=== PATIENT | female | born 1930 | race Caucasian/White ===

== ENCOUNTER → 2017-04-11 | Outpatient (CLI) | payer OTHER ==
[~2017-04-11] MED LIST: ACET325 PO; ACYC800 PO; ALBU90OI INH; ALBU90OI61 INH; AMLO5 PO; ASPI81CH PO; ASPI81EC PO; ATEN25 PO; AZIT500 PO; Amlodipine Bes2.5 MG PO; BENMENLOZ UD; CARV25 PO; CEFU50SU PO; CEN; CEPH250A PO; CEPH500 PO; CLIN300 PO; CLINDAMYCIN HCL75 MG; CLOBET30L TOP; CLOP75 PO; Ceftriaxon2 GM/50 ML IV; Cephalexin500 M1 PO; DEEP SEA44 ML NS; DIGO.125 PO; DOCU100 PO; DULERA 200 MCG/13 GM INH; ESTR.625; ESTR2; ESTRTP VAG; FAMO20 PO; GAVILAX17 GM PO; GLUC500 PO; GUAI600T33 PO; HRT; HYDACE5 PO; HYDCHL25 PO; IBUP600 PO; KETO.5OPSO LEFTEYE; LEVFLO500; LIVALO; LIVALO4 MG PO; LORA.5 PO; LOSA50 PO; METO50ER PO; MUPI1NAS; MUPI2TC TOP; Macrobid 100 M100 MG PO; Mucinex600 MG; Norco 5-325 Ta1 EACH PO; OMEP20ER; ONDA4ODT MM; POLTRIOPSO OU; PRED10 PO; Prilosec Otc20 MG PO; Ra Tussin Coug118 ML PO; SACC250C; SACC250C PO; SPIR25 PO; SULTRIDS PO; TOBR.3OPSO OP; Tamiflu30 MG PO; XARELTO20 MG PO
== END ==
LOC: LAB EV 17:05 → LAB SHORT 17:05
DX: B37.0 Candidal stomatitis (principal)
CPT/HCPCS: 87070

== ENCOUNTER → 2017-04-15 | Outpatient (CLI) | payer OTHER ==
[2017-04-17 12:41] LABS: HPV Genotype 16 Not Detected (NOTDET); HPV Genotype 18 Not Detected (NOTDET)
[2017-04-22 08:55] LABS: HPV High Risk Other Not Detected (NOTDET)
== END | disposition home or self-care (01) ==
LOC: OLS 13:53 → LAB SHORT 13:53
PROVIDERS: Obstetrics & Gynecology Gynecology
DX: Z12.4 Encounter for screening for malignant neoplasm of cervix (principal)
CPT/HCPCS: 87624; G0123

== ENCOUNTER 2017-04-20 16:16 | Inpatient (IN) | payer OTHER ==
[~2017-04-20] VITALS: Ht 152.4 cm; Wt 56.4 kg
[~2017-04-20 16:16] MED LIST changes: -ALBU90OI61 INH; -BENMENLOZ UD; -CEPH250A PO; -CLOBET30L TOP; -Ceftriaxon2 GM/50 ML IV; -Cephalexin500 M1 PO; -DEEP SEA44 ML NS; -DOCU100 PO; -FAMO20 PO; -GAVILAX17 GM PO; -IBUP600 PO; -LEVFLO500; -METO50ER PO; -MUPI1NAS; -Norco 5-325 Ta1 EACH PO; -SACC250C
[2017-04-20 19:18] LABS: Source, Urine Catheter
[2017-04-20 19:23] LABS: Bilirubin, Urine Neg (Neg); Blood, Urine 1+ (Neg); Glucose Qualitative, Urine Neg (Neg); Ketones, Urine 2+ (Neg); Leukocyte Esterase, Urine 1+ (Neg); Nitrite, Urine Neg (Neg); Protein, Urine 2+ (Neg); Urobilinogen, Urine NORM (Normal)
[2017-04-20 19:30] LABS: Appearance, Urine Clear (Clear); Color, Urine Yellow (P-Yellow); White Blood Cells, Urine 25-50 /hpf (0-5)
[2017-04-20 19:31] LABS: Bacteria Many /hpf; Squamous Epithelial Cells Few /hpf (Few)
[2017-04-20 20:48] LABS: BASOPHILS ABSOLUTE AUTO 0.03 K/mm3 (0.00-0.23); BASOPHILS PERCENT AUTO 0 % (0-2); Hematocrit 30.2 % (33.0-51.0); Hemoglobin 9.9 g/dL (11.5-16.0); LYMPHOCYTES PERCENT AUTO 1 % (21-46); MONOCYTES ABSOLUTE AUTO 0.75 K/mm3 (0.16-1.47); MONOCYTES PERCENT AUTO 3 % (4-13); Mean Corpuscular HGB 32.5 pg (26.0-34.0); Mean Corpuscular HGB Conc 32.8 g/dL (31.5-36.5); Mean Corpuscular Volume 99 fL (80-100); Mean Platelet Volume 9.2 fL (9.1-12.4); Platelet Count 106 K/mm3 (150-400); RDW Coefficient Variation 16.4 % (11.7-14.2); RDW Standard Deviation 60.2 fL (35.1-46.3); Red Blood Cell Count 3.05 M/mm3 (3.80-5.20); White Blood Cell Count 22.15 K/mm3 (4.00-11.30)
[2017-04-20 20:57] LABS: EOSINOPHILS PERCENT AUTO 0 % (0-6); IMMATURE GRAN ABSOLUTE AUTO 0.13 K/mm3 (0.00-0.10); IMMATURE GRAN PERCENT AUTO 1 % (0-1); NEUTROPHILS ABSOLUTE AUTO 20.94 K/mm3 (1.96-9.15); NEUTROPHILS PERCENT AUTO 95 % (41-73)
[2017-04-20 21:12] LABS: Alanine Aminotransfer (ALT/SGP 35 U/L (12-78); Albumin, Blood 2.9 g/dL (3.4-5.0); Albumin/Globulin Ratio 0.9 (0.8-1.8); Alk Phos 46 U/L (50-136); Anion Gap 13 mmol/L (6-16); Aspartate Aminotrans (AST/SGOT 28 U/L (12-37); Bilirubin, Total 0.6 mg/dL (0.1-1.0); Blood Urea Nitrogen 21 mg/dL (8-24); Bun/Creatinine Ratio 34.4 (12.0-20.0); CO2, Blood 21 mmol/L (21-32); Calcium, Blood 7.8 mg/dL (8.5-10.1); Chloride, Blood 103 mmol/L (98-108); Creatinine, Blood 0.61 mg/dL (0.40-1.00); Globulin, Blood 3.2 g/dL (2.2-4.0); Glomerular Filtration Rate >60 (60-); Glucose, Blood 140 mg/dL (70-99); Potassium, Blood 3.4 mmol/L (3.5-5.5); Sodium, Blood 137 mmol/L (136-145); Total Protein, Blood 6.1 g/dL (6.4-8.2)
[2017-04-20 21:16] LABS: C-REACTIVE PROTEIN, EXT RANGE >19.000 mg/dL (0.000-0.300)
[2017-04-20 22:52] LABS: Magnesium, Blood 2.2 mg/dL (1.6-2.4)
[2017-04-21 05:47] LABS: Hematocrit 29.9 % (33.0-51.0); Hemoglobin 9.9 g/dL (11.5-16.0); Mean Corpuscular HGB 32.4 pg (26.0-34.0); Mean Corpuscular HGB Conc 33.1 g/dL (31.5-36.5); Mean Corpuscular Volume 98 fL (80-100); Platelet Count 92 K/mm3 (150-400); RDW Coefficient Variation 16.3 % (11.7-14.2); RDW Standard Deviation 58.5 fL (35.1-46.3); Red Blood Cell Count 3.06 M/mm3 (3.80-5.20); White Blood Cell Count 20.67 K/mm3 (4.00-11.30)
[2017-04-21 06:06] LABS: Albumin, Blood 2.6 g/dL (3.4-5.0); Anion Gap 12 mmol/L (6-16); Blood Urea Nitrogen 22 mg/dL (8-24); Bun/Creatinine Ratio 33.4 (12.0-20.0); CO2, Blood 19 mmol/L (21-32); Calcium, Blood 8.1 mg/dL (8.5-10.1); Chloride, Blood 103 mmol/L (98-108); Creatinine, Blood 0.66 mg/dL (0.40-1.00); Glomerular Filtration Rate >60 (60-); Glucose, Blood 115 mg/dL (70-99); Phosphorus, Blood 1.9 mg/dL (2.5-4.9); Potassium, Blood 3.8 mmol/L (3.5-5.5); Sodium, Blood 134 mmol/L (136-145)
[2017-04-21 06:26] LABS: BAND PERCENT MAN 31 % (0-8); BASOPHILS PERCENT MAN 0 % (0-2); EOSINOPHILS PERCENT MAN 0 % (0-6); MONOCYTES ABSOLUTE MAN 1.03 K/mm3 (0.16-1.47); MONOCYTES PERCENT MAN 5 % (4-13); NEUTROPHILS ABSOLUTE MAN 19.63 K/mm3 (1.96-9.15); SEG NEUTROPHILS PERCENT MAN 64 % (41-73); TOTAL CELLS COUNTED 100
[2017-04-21] MEDS ORDERED: IBUP600 PO (13:00)
[2017-04-21] MEDS ORDERED: CEPH250A PO (13:01)
[2017-04-21] MEDS ORDERED: LOSA50 PO (13:01)
[2017-04-21] MEDS ORDERED: MUPI1NAS (13:01)
[2017-04-21] MEDS ORDERED: ALBU90OI61 INH (13:02)
[2017-04-21] MEDS ORDERED: LIVALO4 MG PO (15:50)
[2017-04-21] MEDS ORDERED: SACC250C (16:20)
[2017-04-23 06:02] LABS: BASOPHILS ABSOLUTE AUTO 0.01 K/mm3 (0.00-0.23); BASOPHILS PERCENT AUTO 0 % (0-2); EOSINOPHILS PERCENT AUTO 0 % (0-6); Hematocrit 29.8 % (33.0-51.0); Hemoglobin 9.8 g/dL (11.5-16.0); IMMATURE GRAN ABSOLUTE AUTO 0.11 K/mm3 (0.00-0.10); IMMATURE GRAN PERCENT AUTO 1 % (0-1); LYMPHOCYTES ABSOLUTE AUTO 0.64 K/mm3 (0.84-5.20); LYMPHOCYTES PERCENT AUTO 6 % (21-46); MONOCYTES ABSOLUTE AUTO 0.71 K/mm3 (0.16-1.47); MONOCYTES PERCENT AUTO 7 % (4-13); Mean Corpuscular HGB 32.2 pg (26.0-34.0); Mean Corpuscular HGB Conc 32.9 g/dL (31.5-36.5); Mean Corpuscular Volume 98 fL (80-100); Mean Platelet Volume 10.7 fL (9.1-12.4); NEUTROPHILS ABSOLUTE AUTO 8.57 K/mm3 (1.96-9.15); NEUTROPHILS PERCENT AUTO 85 % (41-73); NRBC ABSOLUTE 0.04 K/mm3 (0.00-0.02); NRBC Auto 0.4 /100 WBC (0.0-0.2); Platelet Count 73 K/mm3 (150-400); RDW Coefficient Variation 15.9 % (11.7-14.2); RDW Standard Deviation 57.8 fL (35.1-46.3); Red Blood Cell Count 3.04 M/mm3 (3.80-5.20); White Blood Cell Count 10.04 K/mm3 (4.00-11.30)
[2017-04-23 06:29] LABS: Alanine Aminotransfer (ALT/SGP 49 U/L (12-78); Albumin, Blood 2.6 g/dL (3.4-5.0); Albumin/Globulin Ratio 0.8 (0.8-1.8); Alk Phos 45 U/L (50-136); Anion Gap 8 mmol/L (6-16); Aspartate Aminotrans (AST/SGOT 30 U/L (12-37); Bilirubin, Total 0.4 mg/dL (0.1-1.0); Blood Urea Nitrogen 29 mg/dL (8-24); Bun/Creatinine Ratio 53.4 (12.0-20.0); CO2, Blood 23 mmol/L (21-32); Calcium, Blood 8.2 mg/dL (8.5-10.1); Chloride, Blood 103 mmol/L (98-108); Creatinine, Blood 0.54 mg/dL (0.40-1.00); Globulin, Blood 3.4 g/dL (2.2-4.0); Glomerular Filtration Rate >60 (60-); Glucose, Blood 152 mg/dL (70-99); Potassium, Blood 4.8 mmol/L (3.5-5.5); Sodium, Blood 134 mmol/L (136-145)
[2017-04-23] MEDS ORDERED: LEVFLO500 (13:58)
[2017-11-19] MEDS ORDERED: CEPH500 PO (12:22)
[2017-11-19] MEDS ORDERED: Cephalexin500 M1 PO (12:25)
== END 2017-04-23 16:49 | disposition home health service (06) | DRG 872 ==
LOC: ER 16:16 → MEDS 21:53 → ENPENDDIS 04-23 13:22 → MEDS 04-23 16:49
PROVIDERS: Family Medicine; Internal Medicine; Physician Assistant
DX: A40.1 Sepsis due to streptococcus, group B (principal); D69.6 Thrombocytopenia, unspecified; I48.91 Unspecified atrial fibrillation; G62.9 Polyneuropathy, unspecified; I10 Essential (primary) hypertension; E78.5 Hyperlipidemia, unspecified; G89.29 Other chronic pain; I25.10 Atherosclerotic heart disease of native coronary artery without angina pectoris; N39.0 Urinary tract infection, site not specified; L03.031 Cellulitis of right toe; B95.2 Enterococcus as the cause of diseases classified elsewhere; M25.551 Pain in right hip; Z95.1 Presence of aortocoronary bypass graft; I25.2 Old myocardial infarction; Z88.0 Allergy status to penicillin; Z88.2 Allergy status to sulfonamides; Z88.1 Allergy status to other antibiotic agents; Z88.8 Allergy status to other drugs, medicaments and biological substances; Z79.01 Long term (current) use of anticoagulants; Z79.899 Other long term (current) drug therapy
CPT/HCPCS: 36415; 72100; 73502; 80053; 80069; 81001; 83605; 83735; 85025; 85651; 86140; 87040; 87077; 87086; 87147; 87186; 93005; 93010; 96374; 97110; 97116; 97162; 97166; 97530; 97535; 99285; G8978; G8979; G8987; G8988; J0696; J1885; J1956; J7030; P9612

== ENCOUNTER 2017-04-25 16:02 | Inpatient (IN) | payer OTHER ==
[~2017-04-25] VITALS: Ht 165.1 cm; Wt 62.2 kg
[~2017-04-25 16:02] MED LIST changes: -BENMENLOZ UD; -CLOBET30L TOP; -Ceftriaxon2 GM/50 ML IV; -DEEP SEA44 ML NS; -DOCU100 PO; -FAMO20 PO; -GAVILAX17 GM PO; -METO50ER PO; -Norco 5-325 Ta1 EACH PO
[2017-04-25 17:01] LABS: Source, Urine Catheter
[2017-04-25 17:06] LABS: Appearance, Urine Clear (Clear); Bilirubin, Urine Neg (Neg); Blood, Urine 1+ (Neg); Color, Urine Yellow (P-Yellow); Glucose Qualitative, Urine Neg (Neg); Ketones, Urine Neg (Neg); Leukocyte Esterase, Urine Neg (Neg); Nitrite, Urine Neg (Neg); Protein, Urine Neg (Neg); Urobilinogen, Urine NORM (Normal)
[2017-04-25 17:26] LABS: Influenza A Negative (NEGATIVE); Influenza B Negative (NEGATIVE)
[2017-04-25 17:27] LABS: Bacteria Not Seen /hpf; Red Blood Cells, Urine 0-2 /hpf (0-2); Squamous Epithelial Cells Rare /hpf (Few); White Blood Cells, Urine Not Seen /hpf (0-5)
[2017-04-26 05:54] LABS: BASOPHILS ABSOLUTE AUTO 0.01 K/mm3 (0.00-0.23); BASOPHILS PERCENT AUTO 0 % (0-2); EOSINOPHILS ABSOLUTE AUTO 0.04 K/mm3 (0.00-0.68); EOSINOPHILS PERCENT AUTO 0 % (0-6); Hematocrit 29.2 % (33.0-51.0); Hemoglobin 9.4 g/dL (11.5-16.0); IMMATURE GRAN ABSOLUTE AUTO 0.17 K/mm3 (0.00-0.10); IMMATURE GRAN PERCENT AUTO 1 % (0-1); LYMPHOCYTES ABSOLUTE AUTO 0.76 K/mm3 (0.84-5.20); LYMPHOCYTES PERCENT AUTO 5 % (21-46); MONOCYTES ABSOLUTE AUTO 0.72 K/mm3 (0.16-1.47); MONOCYTES PERCENT AUTO 5 % (4-13); Mean Corpuscular HGB 31.9 pg (26.0-34.0); Mean Corpuscular HGB Conc 32.2 g/dL (31.5-36.5); Mean Corpuscular Volume 99 fL (80-100); Mean Platelet Volume 10.6 fL (9.1-12.4); NEUTROPHILS ABSOLUTE AUTO 13.86 K/mm3 (1.96-9.15); NEUTROPHILS PERCENT AUTO 89 % (41-73); Platelet Count 111 K/mm3 (150-400); RDW Coefficient Variation 15.9 % (11.7-14.2); RDW Standard Deviation 58.1 fL (35.1-46.3); Red Blood Cell Count 2.95 M/mm3 (3.80-5.20); White Blood Cell Count 15.56 K/mm3 (4.00-11.30)
[2017-04-26 06:18] LABS: Alanine Aminotransfer (ALT/SGP 39 U/L (12-78); Albumin, Blood 2.3 g/dL (3.4-5.0); Albumin/Globulin Ratio 0.8 (0.8-1.8); Alk Phos 46 U/L (50-136); Anion Gap 10 mmol/L (6-16); Aspartate Aminotrans (AST/SGOT 21 U/L (12-37); Bilirubin, Total 0.2 mg/dL (0.1-1.0); Blood Urea Nitrogen 20 mg/dL (8-24); Bun/Creatinine Ratio 31.8 (12.0-20.0); CO2, Blood 21 mmol/L (21-32); Calcium, Blood 7.8 mg/dL (8.5-10.1); Chloride, Blood 109 mmol/L (98-108); Creatinine, Blood 0.63 mg/dL (0.40-1.00); Glomerular Filtration Rate >60 (60-); Glucose, Blood 147 mg/dL (70-99); Potassium, Blood 3.5 mmol/L (3.5-5.5); Sodium, Blood 140 mmol/L (136-145); Total Protein, Blood 5.3 g/dL (6.4-8.2)
[2017-04-27 05:23] LABS: BASOPHILS ABSOLUTE AUTO 0.02 K/mm3 (0.00-0.23); BASOPHILS PERCENT AUTO 0 % (0-2); EOSINOPHILS ABSOLUTE AUTO 0.06 K/mm3 (0.00-0.68); EOSINOPHILS PERCENT AUTO 0 % (0-6); Hematocrit 27.6 % (33.0-51.0); Hemoglobin 8.8 g/dL (11.5-16.0); IMMATURE GRAN ABSOLUTE AUTO 0.29 K/mm3 (0.00-0.10); IMMATURE GRAN PERCENT AUTO 2 % (0-1); LYMPHOCYTES ABSOLUTE AUTO 0.74 K/mm3 (0.84-5.20); LYMPHOCYTES PERCENT AUTO 5 % (21-46); MONOCYTES ABSOLUTE AUTO 0.68 K/mm3 (0.16-1.47); MONOCYTES PERCENT AUTO 5 % (4-13); Mean Corpuscular HGB 31.4 pg (26.0-34.0); Mean Corpuscular HGB Conc 31.9 g/dL (31.5-36.5); Mean Corpuscular Volume 99 fL (80-100); Mean Platelet Volume 10.4 fL (9.1-12.4); NEUTROPHILS ABSOLUTE AUTO 12.43 K/mm3 (1.96-9.15); NEUTROPHILS PERCENT AUTO 88 % (41-73); Platelet Count 108 K/mm3 (150-400); RDW Coefficient Variation 15.9 % (11.7-14.2); RDW Standard Deviation 58.1 fL (35.1-46.3); White Blood Cell Count 14.22 K/mm3 (4.00-11.30)
[2017-04-27 05:57] LABS: Alanine Aminotransfer (ALT/SGP 35 U/L (12-78); Albumin, Blood 2.2 g/dL (3.4-5.0); Albumin/Globulin Ratio 0.8 (0.8-1.8); Alk Phos 51 U/L (50-136); Anion Gap 9 mmol/L (6-16); Aspartate Aminotrans (AST/SGOT 21 U/L (12-37); Bilirubin, Total 0.4 mg/dL (0.1-1.0); Blood Urea Nitrogen 16 mg/dL (8-24); Bun/Creatinine Ratio 24.8 (12.0-20.0); CO2, Blood 22 mmol/L (21-32); Calcium, Blood 7.4 mg/dL (8.5-10.1); Chloride, Blood 109 mmol/L (98-108); Creatinine, Blood 0.65 mg/dL (0.40-1.00); Globulin, Blood 2.9 g/dL (2.2-4.0); Glomerular Filtration Rate >60 (60-); Glucose, Blood 145 mg/dL (70-99); Potassium, Blood 3.6 mmol/L (3.5-5.5); Sodium, Blood 140 mmol/L (136-145); Total Protein, Blood 5.1 g/dL (6.4-8.2)
[2017-04-29 08:32] LABS: BASOPHILS ABSOLUTE AUTO 0.02 K/mm3 (0.00-0.23); BASOPHILS PERCENT AUTO 0 % (0-2); EOSINOPHILS ABSOLUTE AUTO 0.06 K/mm3 (0.00-0.68); EOSINOPHILS PERCENT AUTO 0 % (0-6); Hematocrit 31.5 % (33.0-51.0); Hemoglobin 9.7 g/dL (11.5-16.0); IMMATURE GRAN ABSOLUTE AUTO 0.17 K/mm3 (0.00-0.10); IMMATURE GRAN PERCENT AUTO 1 % (0-1); LYMPHOCYTES ABSOLUTE AUTO 0.81 K/mm3 (0.84-5.20); LYMPHOCYTES PERCENT AUTO 5 % (21-46); MONOCYTES ABSOLUTE AUTO 0.91 K/mm3 (0.16-1.47); MONOCYTES PERCENT AUTO 6 % (4-13); Mean Corpuscular HGB 30.8 pg (26.0-34.0); Mean Corpuscular HGB Conc 30.8 g/dL (31.5-36.5); Mean Corpuscular Volume 100 fL (80-100); Mean Platelet Volume 10.2 fL (9.1-12.4); NEUTROPHILS ABSOLUTE AUTO 14.22 K/mm3 (1.96-9.15); NEUTROPHILS PERCENT AUTO 88 % (41-73); NRBC ABSOLUTE 0.03 K/mm3 (0.00-0.02); NRBC Auto 0.2 /100 WBC (0.0-0.2); Platelet Count 180 K/mm3 (150-400); RDW Standard Deviation 59.6 fL (35.1-46.3); Red Blood Cell Count 3.15 M/mm3 (3.80-5.20); White Blood Cell Count 16.19 K/mm3 (4.00-11.30)
[2017-04-29 08:54] LABS: Anion Gap 9 mmol/L (6-16); Blood Urea Nitrogen 13 mg/dL (8-24); Bun/Creatinine Ratio 20.5 (12.0-20.0); CO2, Blood 24 mmol/L (21-32); Calcium, Blood 7.6 mg/dL (8.5-10.1); Chloride, Blood 108 mmol/L (98-108); Creatinine, Blood 0.64 mg/dL (0.40-1.00); Glomerular Filtration Rate >60 (60-); Glucose, Blood 122 mg/dL (70-99); Potassium, Blood 3.9 mmol/L (3.5-5.5); Sodium, Blood 141 mmol/L (136-145)
[2017-04-30 08:12] LABS: BASOPHILS ABSOLUTE AUTO 0.02 K/mm3 (0.00-0.23); BASOPHILS PERCENT AUTO 0 % (0-2); EOSINOPHILS PERCENT AUTO 1 % (0-6); IMMATURE GRAN ABSOLUTE AUTO 0.24 K/mm3 (0.00-0.10); IMMATURE GRAN PERCENT AUTO 1 % (0-1); LYMPHOCYTES ABSOLUTE AUTO 0.98 K/mm3 (0.84-5.20); LYMPHOCYTES PERCENT AUTO 6 % (21-46); MONOCYTES PERCENT AUTO 8 % (4-13); Mean Corpuscular HGB 31.7 pg (26.0-34.0); Mean Corpuscular HGB Conc 32.3 g/dL (31.5-36.5); Mean Corpuscular Volume 98 fL (80-100); Mean Platelet Volume 10.4 fL (9.1-12.4); NEUTROPHILS ABSOLUTE AUTO 14.61 K/mm3 (1.96-9.15); NEUTROPHILS PERCENT AUTO 85 % (41-73); NRBC ABSOLUTE 0.03 K/mm3 (0.00-0.02); NRBC Auto 0.2 /100 WBC (0.0-0.2); Platelet Count 189 K/mm3 (150-400); RDW Coefficient Variation 16.2 % (11.7-14.2); RDW Standard Deviation 57.8 fL (35.1-46.3); Red Blood Cell Count 3.15 M/mm3 (3.80-5.20); White Blood Cell Count 17.25 K/mm3 (4.00-11.30)
[2017-04-30 08:25] LABS: Anion Gap 10 mmol/L (6-16); Blood Urea Nitrogen 12 mg/dL (8-24); CO2, Blood 22 mmol/L (21-32); Calcium, Blood 7.8 mg/dL (8.5-10.1); Chloride, Blood 107 mmol/L (98-108); Creatinine, Blood 0.63 mg/dL (0.40-1.00); Glomerular Filtration Rate >60 (60-); Glucose, Blood 137 mg/dL (70-99); Potassium, Blood 4.1 mmol/L (3.5-5.5); Sodium, Blood 139 mmol/L (136-145)
[2017-05-01 08:11] LABS: BASOPHILS ABSOLUTE AUTO 0.02 K/mm3 (0.00-0.23); BASOPHILS PERCENT AUTO 0 % (0-2); EOSINOPHILS ABSOLUTE AUTO 0.05 K/mm3 (0.00-0.68); EOSINOPHILS PERCENT AUTO 0 % (0-6); Hematocrit 30.6 % (33.0-51.0); Hemoglobin 9.8 g/dL (11.5-16.0); IMMATURE GRAN ABSOLUTE AUTO 0.19 K/mm3 (0.00-0.10); IMMATURE GRAN PERCENT AUTO 1 % (0-1); LYMPHOCYTES ABSOLUTE AUTO 1.21 K/mm3 (0.84-5.20); LYMPHOCYTES PERCENT AUTO 8 % (21-46); MONOCYTES ABSOLUTE AUTO 1.08 K/mm3 (0.16-1.47); MONOCYTES PERCENT AUTO 7 % (4-13); Mean Corpuscular HGB 31.3 pg (26.0-34.0); Mean Corpuscular Volume 98 fL (80-100); Mean Platelet Volume 10.4 fL (9.1-12.4); NEUTROPHILS PERCENT AUTO 83 % (41-73); NRBC ABSOLUTE 0.03 K/mm3 (0.00-0.02); NRBC Auto 0.2 /100 WBC (0.0-0.2); Platelet Count 210 K/mm3 (150-400); RDW Coefficient Variation 16.5 % (11.7-14.2); RDW Standard Deviation 58.8 fL (35.1-46.3); Red Blood Cell Count 3.13 M/mm3 (3.80-5.20); White Blood Cell Count 15.25 K/mm3 (4.00-11.30)
[2017-05-01] MEDS ORDERED: BENMENLOZ UD (13:56)
[2017-05-01] MEDS ORDERED: CLOBET30L TOP (14:00)
[2017-05-01] MEDS ORDERED: DOCU100 PO (14:02)
[2017-05-01] MEDS ORDERED: Norco 5-325 Ta1 EACH PO (14:03)
[2017-05-01] MEDS ORDERED: FAMO20 PO (14:04)
[2017-05-01] MEDS ORDERED: METO50ER PO (14:04)
[2017-05-01] MEDS ORDERED: GAVILAX17 GM PO (14:05)
[2017-05-01] MEDS ORDERED: Ceftriaxon2 GM/50 ML IV (14:06)
[2017-05-01] MEDS ORDERED: GUAI600T33 PO (14:07)
[2017-05-01] MEDS ORDERED: DEEP SEA44 ML NS (14:08)
[2017-11-19] MEDS ORDERED: CEPH500 PO (12:22)
[2017-11-19] MEDS ORDERED: Cephalexin500 M1 PO (12:25)
== END 2017-05-01 13:10 | DRG 872 ==
LOC: ER 16:02 → MEDS 18:01 → ENPENDDIS 05-01 11:19 → MEDS 05-01 13:10
PROVIDERS: Emergency Medicine; Family Medicine; Internal Medicine
PROC: 02HV33Z Insertion of Infusion Device into Superior Vena Cava, Percutaneous Approach (ICD-10-PCS; principal; 2017-04-30)
DX: A40.1 Sepsis due to streptococcus, group B (principal); E46 Unspecified protein-calorie malnutrition; D69.6 Thrombocytopenia, unspecified; G62.9 Polyneuropathy, unspecified; I48.2 Chronic atrial fibrillation; I05.2 Rheumatic mitral stenosis with insufficiency; L03.115 Cellulitis of right lower limb; B35.3 Tinea pedis; E86.0 Dehydration; R63.0 Anorexia; E86.9 Volume depletion, unspecified; E78.5 Hyperlipidemia, unspecified; I10 Essential (primary) hypertension; I25.10 Atherosclerotic heart disease of native coronary artery without angina pectoris; I73.9 Peripheral vascular disease, unspecified; Z95.2 Presence of prosthetic heart valve; M25.551 Pain in right hip; M60.9 Myositis, unspecified; Z88.0 Allergy status to penicillin; Z88.2 Allergy status to sulfonamides; Z79.02 Long term (current) use of antithrombotics/antiplatelets; Z96.652 Presence of left artificial knee joint; Z88.1 Allergy status to other antibiotic agents; Z95.1 Presence of aortocoronary bypass graft
CPT/HCPCS: 36415; 36569; 71045; 71046; 73502; 73721; 78305; 78315; 80048; 80053; 81001; 83605; 85025; 85651; 86140; 87040; 87147; 87804; 93306; 93922; 94640; 94667; 94760; 96361; 96365; 97116; 97162; 97166; 97530; 97535; 99285; A9561; C1751; G8978; G8979; G8987; G8988; J0295; J0696; J2405; J7030; P9612

== ENCOUNTER → 2017-04-25 | Outpatient (CLI) | payer OTHER ==
[~2017-04-25] MED LIST changes: +ALBU90OI61 INH; +BENMENLOZ UD; +CEPH250A PO; +CLOBET30L TOP; +Ceftriaxon2 GM/50 ML IV; +DEEP SEA44 ML NS; +DOCU100 PO; +FAMO20 PO; +GAVILAX17 GM PO; +IBUP600 PO; +LEVFLO500; +METO50ER PO; +MUPI1NAS; +Norco 5-325 Ta1 EACH PO; +SACC250C
[2017-04-25 14:01] LABS: BASOPHILS ABSOLUTE AUTO 0.06 K/mm3 (0.00-0.23); BASOPHILS PERCENT AUTO 0 % (0-2); EOSINOPHILS ABSOLUTE AUTO 0.01 K/mm3 (0.00-0.68); EOSINOPHILS PERCENT AUTO 0 % (0-6); Hematocrit 35.1 % (33.0-51.0); Hemoglobin 11.8 g/dL (11.5-16.0); IMMATURE GRAN ABSOLUTE AUTO 0.37 K/mm3 (0.00-0.10); IMMATURE GRAN PERCENT AUTO 2 % (0-1); LYMPHOCYTES ABSOLUTE AUTO 0.92 K/mm3 (0.84-5.20); LYMPHOCYTES PERCENT AUTO 4 % (21-46); MONOCYTES ABSOLUTE AUTO 1.21 K/mm3 (0.16-1.47); MONOCYTES PERCENT AUTO 6 % (4-13); Mean Corpuscular HGB 32.8 pg (26.0-34.0); Mean Corpuscular HGB Conc 33.6 g/dL (31.5-36.5); Mean Corpuscular Volume 98 fL (80-100); Mean Platelet Volume 10.4 fL (9.1-12.4); NEUTROPHILS ABSOLUTE AUTO 19.58 K/mm3 (1.96-9.15); NEUTROPHILS PERCENT AUTO 88 % (41-73); Platelet Count 130 K/mm3 (150-400); RDW Coefficient Variation 15.9 % (11.7-14.2); RDW Standard Deviation 57.4 fL (35.1-46.3); White Blood Cell Count 22.15 K/mm3 (4.00-11.30)
[2017-04-25 14:16] LABS: Alanine Aminotransfer (ALT/SGP 67 U/L (12-78); Albumin, Blood 3.4 g/dL (3.4-5.0); Albumin/Globulin Ratio 1.1 (0.8-1.8); Alk Phos 62 U/L (40-126); Anion Gap 13 mmol/L (6-16); Aspartate Aminotrans (AST/SGOT 35 U/L (12-37); Bilirubin, Total 0.7 mg/dL (0.1-1.0); Blood Urea Nitrogen 21 mg/dL (8-24); Bun/Creatinine Ratio 27.6 (12.0-20.0); CO2, Blood 22 mmol/L (21-32); Chloride, Blood 100 mmol/L (98-108); Creatinine, Blood 0.76 mg/dL (0.40-1.00); Globulin, Blood 3.1 g/dL (2.2-4.0); Glomerular Filtration Rate >60 (60-); Glucose, Blood 131 mg/dL (70-99); Sodium, Blood 135 mmol/L (136-145); Total Protein, Blood 6.5 g/dL (6.4-8.2)
== END | disposition home or self-care (01) ==
LOC: LAB SHORT 13:57 → LAB EV 13:57
PROVIDERS: Physician Assistant Surgical
DX: R42 Dizziness and giddiness (principal)
CPT/HCPCS: 80053; 85025

== ENCOUNTER → 2017-07-06 | Outpatient (CLI) | payer OTHER ==
[~2017-07-06] MED LIST changes: +BENMENLOZ UD; +CLOBET30L TOP; +Ceftriaxon2 GM/50 ML IV; +DEEP SEA44 ML NS; +DOCU100 PO; +FAMO20 PO; +GAVILAX17 GM PO; +METO50ER PO; +Norco 5-325 Ta1 EACH PO
== END ==
LOC: LAB EV 19:06 → LAB SHORT 19:06
DX: N39.0 Urinary tract infection, site not specified (principal)
CPT/HCPCS: 87086; 87147

== ENCOUNTER → 2017-07-11 | Outpatient (CLI) | payer OTHER | END | disposition home or self-care (01) | LOC: LAB SHORT 11:19 → LAB EV 11:19 | DX: N39.0 Urinary tract infection, site not specified (principal) | CPT/HCPCS: 87086 ==

== ENCOUNTER → 2017-07-15 | Outpatient (CLI) | payer OTHER ==
[2017-07-15 14:58] LABS: Source, Urine Catheter
[2017-07-15 16:07] LABS: Appearance, Urine Hazy (Clear); Bilirubin, Urine Neg (Neg); Blood, Urine Neg (Neg); Color, Urine Yellow (P-Yellow); Glucose Qualitative, Urine Neg (Neg); Ketones, Urine Neg (Neg); Leukocyte Esterase, Urine 2+ (Neg); Nitrite, Urine Neg (Neg); Protein, Urine Neg (Neg); Urobilinogen, Urine NORM (Normal); pH, Urine 6.5 (5.0-8.0)
[2017-07-15 16:26] LABS: Bacteria Few /hpf; Red Blood Cells, Urine 0-2 /hpf (0-2); Squamous Epithelial Cells Rare /hpf (Few); White Blood Cells, Urine 25-50 /hpf (0-5)
== END | disposition home or self-care (01) ==
LOC: LAB SHORT 14:56 → OLS 14:56
PROVIDERS: Nurse Practitioner Women's Health
DX: N89.8 Other specified noninflammatory disorders of vagina (principal); R30.0 Dysuria
CPT/HCPCS: 81001

== ENCOUNTER → 2017-09-02 | Outpatient (CLI) | payer OTHER | LOC: LAB SHORT 11:04 → PLD 11:04 | DX: D48.5 Neoplasm of uncertain behavior of skin (principal) | CPT/HCPCS: 88305 ==

== ENCOUNTER 2017-09-07 07:39 | Day surgery (SDC) | payer OTHER | END 2017-09-07 09:33 | disposition home or self-care (01) | LOC: WOUND 07:39 | DX: Z48.00 Encounter for change or removal of nonsurgical wound dressing (principal); M20.41 Other hammer toe(s) (acquired), right foot; M79.674 Pain in right toe(s) | CPT/HCPCS: G0463 ==

== ENCOUNTER 2017-09-21 07:10 | Day surgery (SDC) | payer OTHER | END 2017-09-21 09:20 | disposition home or self-care (01) | LOC: WOUND 07:10 | DX: Z48.00 Encounter for change or removal of nonsurgical wound dressing (principal); I70.209 Unspecified atherosclerosis of native arteries of extremities, unspecified extremity; M20.41 Other hammer toe(s) (acquired), right foot; M79.674 Pain in right toe(s); I87.2 Venous insufficiency (chronic) (peripheral) | CPT/HCPCS: G0463 ==

== ENCOUNTER 2018-03-02 00:14 | Day surgery (SDC) | payer OTHER ==
[~2018-03-02 00:14] MED LIST changes: +Cephalexin500 M1 PO
== END 2018-03-02 22:43 | disposition home or self-care (01) ==
LOC: WOUND 00:14
DX: S81.801D Unspecified open wound, right lower leg, subsequent encounter (principal); S61.213A Laceration without foreign body of left middle finger without damage to nail, initial encounter; S61.211A Laceration without foreign body of left index finger without damage to nail, initial encounter; M79.604 Pain in right leg; I10 Essential (primary) hypertension; I73.9 Peripheral vascular disease, unspecified
CPT/HCPCS: G0463

== ENCOUNTER 2018-03-05 00:14 | Day surgery (SDC) | payer OTHER | END 2018-03-05 23:15 | disposition home or self-care (01) | LOC: WOUND 00:14 | DX: M79.604 Pain in right leg (principal); S81.801D Unspecified open wound, right lower leg, subsequent encounter; S00-T88 Injury, poisoning and certain other consequences of external causes | CPT/HCPCS: G0463 ==

== ENCOUNTER 2018-03-12 14:24 | Day surgery (SDC) | payer OTHER | END 2018-03-12 22:43 | disposition home or self-care (01) | LOC: WOUND 14:24 | DX: M79.604 Pain in right leg (principal); S80.11XD Contusion of right lower leg, subsequent encounter | CPT/HCPCS: G0463 ==

== ENCOUNTER 2018-03-17 13:52 | Day surgery (SDC) | payer OTHER | END 2018-03-17 22:45 | disposition home or self-care (01) | LOC: WOUND 13:52 | DX: S80.811D Abrasion, right lower leg, subsequent encounter (principal); S80.11XD Contusion of right lower leg, subsequent encounter; M79.604 Pain in right leg ==

== ENCOUNTER 2018-03-19 08:33 | Day surgery (SDC) | payer OTHER | END 2018-03-19 22:38 | disposition home or self-care (01) | LOC: WOUND 08:33 | DX: M79.604 Pain in right leg (principal); S80.811D Abrasion, right lower leg, subsequent encounter; S80.11XD Contusion of right lower leg, subsequent encounter; Z79.899 Other long term (current) drug therapy | CPT/HCPCS: G0463 ==

== ENCOUNTER 2018-03-23 09:00 | Day surgery (SDC) | payer OTHER | END 2018-03-23 22:37 | disposition home or self-care (01) | LOC: WOUND 09:00 | PROC: 0HBKXZZ Excision of Right Lower Leg Skin, External Approach (ICD-10-PCS; principal; 2018-03-23) | DX: S81.811A Laceration without foreign body, right lower leg, initial encounter (principal) ==

== ENCOUNTER 2018-03-26 00:09 | Day surgery (SDC) | payer OTHER | END 2018-03-26 22:44 | disposition home or self-care (01) | LOC: WOUND 00:09 | DX: M79.604 Pain in right leg (principal); S80.811D Abrasion, right lower leg, subsequent encounter; S80.11XD Contusion of right lower leg, subsequent encounter; I10 Essential (primary) hypertension; I73.9 Peripheral vascular disease, unspecified; Z79.01 Long term (current) use of anticoagulants | CPT/HCPCS: G0463 ==

== ENCOUNTER 2018-03-29 15:08 | Day surgery (SDC) | payer OTHER | END 2018-03-29 23:42 | disposition home or self-care (01) | LOC: WOUND 15:08 | DX: S80.811D Abrasion, right lower leg, subsequent encounter (principal); Z79.01 Long term (current) use of anticoagulants; I10 Essential (primary) hypertension; I73.9 Peripheral vascular disease, unspecified | CPT/HCPCS: G0463 ==

== ENCOUNTER 2018-04-02 08:46 | Day surgery (SDC) | payer OTHER | END 2018-04-02 23:58 | disposition home or self-care (01) | LOC: WOUND 08:46 | PROC: 0HBKXZZ Excision of Right Lower Leg Skin, External Approach (ICD-10-PCS; principal; 2018-04-02) | DX: S81.811A Laceration without foreign body, right lower leg, initial encounter (principal) ==

== ENCOUNTER 2018-04-09 08:45 | Day surgery (SDC) | payer OTHER | END 2018-04-09 23:11 | disposition home or self-care (01) | LOC: WOUND 08:45 | DX: M79.604 Pain in right leg (principal); S80.11XD Contusion of right lower leg, subsequent encounter; S80.811D Abrasion, right lower leg, subsequent encounter; Z79.01 Long term (current) use of anticoagulants; I10 Essential (primary) hypertension ==

== ENCOUNTER 2018-04-16 08:45 | Day surgery (SDC) | payer OTHER | END 2018-04-16 22:54 | disposition home or self-care (01) | LOC: WOUND 08:45 | DX: S80.811A Abrasion, right lower leg, initial encounter (principal); S80.11XA Contusion of right lower leg, initial encounter; L97.819 Non-pressure chronic ulcer of other part of right lower leg with unspecified severity; M79.604 Pain in right leg; I87.2 Venous insufficiency (chronic) (peripheral); I11.0 Hypertensive heart disease with heart failure; I50.22 Chronic systolic (congestive) heart failure; I73.9 Peripheral vascular disease, unspecified; I25.10 Atherosclerotic heart disease of native coronary artery without angina pectoris | CPT/HCPCS: G0463 ==

== ENCOUNTER 2018-04-23 08:30 | Day surgery (SDC) | payer OTHER | END 2018-04-23 23:02 | disposition home or self-care (01) | LOC: WOUND 08:30 | DX: L97.812 Non-pressure chronic ulcer of other part of right lower leg with fat layer exposed (principal); S80.11XA Contusion of right lower leg, initial encounter; I87.2 Venous insufficiency (chronic) (peripheral); M79.604 Pain in right leg; I73.9 Peripheral vascular disease, unspecified; I25.10 Atherosclerotic heart disease of native coronary artery without angina pectoris; I11.0 Hypertensive heart disease with heart failure; I50.22 Chronic systolic (congestive) heart failure; L08.9 Local infection of the skin and subcutaneous tissue, unspecified; B95.61 Methicillin susceptible Staphylococcus aureus infection as the cause of diseases classified elsewhere ==

== ENCOUNTER 2018-04-30 08:32 | Day surgery (SDC) | payer OTHER | END 2018-04-30 23:14 | disposition home or self-care (01) | LOC: WOUND 08:32 | DX: L97.912 Non-pressure chronic ulcer of unspecified part of right lower leg with fat layer exposed (principal); S80.11XD Contusion of right lower leg, subsequent encounter; I87.2 Venous insufficiency (chronic) (peripheral); M79.604 Pain in right leg | CPT/HCPCS: G0463 ==

== ENCOUNTER 2018-05-07 00:52 | Day surgery (SDC) | payer OTHER | END 2018-05-08 23:17 | disposition home or self-care (01) | LOC: WOUND 00:52 | DX: L97.912 Non-pressure chronic ulcer of unspecified part of right lower leg with fat layer exposed (principal); S80.11XD Contusion of right lower leg, subsequent encounter; I87.2 Venous insufficiency (chronic) (peripheral); M79.604 Pain in right leg ==

== ENCOUNTER 2018-05-14 08:45 | Day surgery (SDC) | payer OTHER | END 2018-05-14 12:00 | disposition home or self-care (01) | LOC: WOUND 08:45 | DX: L97.912 Non-pressure chronic ulcer of unspecified part of right lower leg with fat layer exposed (principal); S80.11XD Contusion of right lower leg, subsequent encounter; M79.604 Pain in right leg; I10 Essential (primary) hypertension; I73.9 Peripheral vascular disease, unspecified; I25.10 Atherosclerotic heart disease of native coronary artery without angina pectoris; I87.2 Venous insufficiency (chronic) (peripheral); Z79.01 Long term (current) use of anticoagulants | CPT/HCPCS: G0463 ==

== ENCOUNTER 2018-06-04 00:13 | Day surgery (SDC) | payer OTHER | END 2018-06-04 12:00 | disposition home or self-care (01) | LOC: WOUND 00:13 | DX: L97.812 Non-pressure chronic ulcer of other part of right lower leg with fat layer exposed (principal); S80.11XD Contusion of right lower leg, subsequent encounter; I87.2 Venous insufficiency (chronic) (peripheral); I11.0 Hypertensive heart disease with heart failure; I50.22 Chronic systolic (congestive) heart failure; I25.10 Atherosclerotic heart disease of native coronary artery without angina pectoris; J45.909 Unspecified asthma, uncomplicated; I25.2 Old myocardial infarction; M19.90 Unspecified osteoarthritis, unspecified site ==

== ENCOUNTER 2018-06-11 00:27 | Day surgery (SDC) | payer OTHER | END 2018-06-11 23:22 | disposition home or self-care (01) | LOC: WOUND 00:27 | DX: L97.912 Non-pressure chronic ulcer of unspecified part of right lower leg with fat layer exposed (principal); L97.919 Non-pressure chronic ulcer of unspecified part of right lower leg with unspecified severity; I11.0 Hypertensive heart disease with heart failure; I50.22 Chronic systolic (congestive) heart failure; I25.10 Atherosclerotic heart disease of native coronary artery without angina pectoris; I87.2 Venous insufficiency (chronic) (peripheral); I25.2 Old myocardial infarction; R60.0 Localized edema | CPT/HCPCS: G0463 ==

== ENCOUNTER 2018-06-18 00:44 | Day surgery (SDC) | payer OTHER | END 2018-06-18 23:09 | disposition home or self-care (01) | LOC: WOUND 00:44 | DX: L97.812 Non-pressure chronic ulcer of other part of right lower leg with fat layer exposed (principal); I11.0 Hypertensive heart disease with heart failure; I50.22 Chronic systolic (congestive) heart failure; I25.10 Atherosclerotic heart disease of native coronary artery without angina pectoris; I87.2 Venous insufficiency (chronic) (peripheral); J45.909 Unspecified asthma, uncomplicated; R60.0 Localized edema ==

== ENCOUNTER 2018-06-25 09:05 | Day surgery (SDC) | payer OTHER | END 2018-06-25 23:52 | disposition home or self-care (01) | LOC: WOUND 09:05 | DX: I87.2 Venous insufficiency (chronic) (peripheral) (principal); L97.912 Non-pressure chronic ulcer of unspecified part of right lower leg with fat layer exposed; I11.0 Hypertensive heart disease with heart failure; I50.22 Chronic systolic (congestive) heart failure; I25.10 Atherosclerotic heart disease of native coronary artery without angina pectoris; I73.9 Peripheral vascular disease, unspecified; J45.909 Unspecified asthma, uncomplicated; I25.2 Old myocardial infarction; Z79.899 Other long term (current) drug therapy | CPT/HCPCS: G0463 ==

== ENCOUNTER 2018-07-02 09:00 | Day surgery (SDC) | payer OTHER ==
[2018-07-05] MEDS ORDERED: TORSE20 PO (15:27)
[2018-07-05] MEDS ORDERED: Estrace Vagin42.5 GM TD (15:27)
[2018-07-05] MEDS ORDERED: XARELTO15 MG PO (15:27)
[2018-07-05] MEDS ORDERED: SPIR25 PO (15:28)
== END 2018-07-02 23:33 | disposition home or self-care (01) ==
LOC: WOUND 09:00
DX: I87.2 Venous insufficiency (chronic) (peripheral) (principal); L97.812 Non-pressure chronic ulcer of other part of right lower leg with fat layer exposed; J45.909 Unspecified asthma, uncomplicated; I25.10 Atherosclerotic heart disease of native coronary artery without angina pectoris; I11.0 Hypertensive heart disease with heart failure; I50.22 Chronic systolic (congestive) heart failure; I25.2 Old myocardial infarction; I73.9 Peripheral vascular disease, unspecified; M06.9 Rheumatoid arthritis, unspecified; M19.90 Unspecified osteoarthritis, unspecified site
CPT/HCPCS: G0463

== ENCOUNTER 2018-07-06 08:27 | Day surgery (SDC) | payer OTHER ==
[2018-07-05 16:55] LABS: International Normalized Ratio 1.08; Prothrombin Time Results 11.4 Sec (9.7-11.5)
[~2018-07-06] VITALS: Ht 152.4 cm; Wt 53.6 kg
[~2018-07-06 08:27] MED LIST changes: +Estrace Vagin42.5 GM TD; +TORSE20 PO; +XARELTO15 MG PO
--- NOTE | 2018-07-06 12:18 | NUR ---
RIGHT LEG TELFA PADS ON ULCERS-WHOLE LEG WRAPPED WITH CURLEX, COBAN AND WENDY BANDAGE.
--- NOTE | 2018-07-06 14:22 | NUR ---
PT AND FRIEND ARELI VERBALIZES UNDERSTANDING WRITTEN AND VERBAL INSTRUCTIONS. PT IV DC'D. CATH INTACT. PRESSURE DSG IN PLACE. PT ASSISTED WITH GETTING DRESSED. VSS. LUCIA. PT DC TO HOME VIA FRIEND BY CATIA.
== END 2018-07-06 22:42 | disposition home or self-care (01) ==
LOC: MHTC 08:27
PROVIDERS: Radiology Diagnostic Radiology
DX: I87.2 Venous insufficiency (chronic) (peripheral) (principal); L97.819 Non-pressure chronic ulcer of other part of right lower leg with unspecified severity; I25.10 Atherosclerotic heart disease of native coronary artery without angina pectoris; I11.0 Hypertensive heart disease with heart failure; I50.9 Heart failure, unspecified; E78.5 Hyperlipidemia, unspecified; Z95.1 Presence of aortocoronary bypass graft; Z95.2 Presence of prosthetic heart valve; Z95.828 Presence of other vascular implants and grafts; Z88.8 Allergy status to other drugs, medicaments and biological substances; Z88.1 Allergy status to other antibiotic agents; Z88.5 Allergy status to narcotic agent; Z79.899 Other long term (current) drug therapy
CPT/HCPCS: 36415; 36466; 36475; 85610; 99152; 99153; C1888; C1894; J1644; J2250; J3010; J7040

== ENCOUNTER 2018-07-09 08:58 | Day surgery (SDC) | payer OTHER | END 2018-07-09 23:12 | disposition home or self-care (01) | LOC: WOUND 08:58 | DX: I87.2 Venous insufficiency (chronic) (peripheral) (principal); S80.11XA Contusion of right lower leg, initial encounter; L97.912 Non-pressure chronic ulcer of unspecified part of right lower leg with fat layer exposed; I11.0 Hypertensive heart disease with heart failure; I50.22 Chronic systolic (congestive) heart failure; I25.10 Atherosclerotic heart disease of native coronary artery without angina pectoris; I25.2 Old myocardial infarction; J45.909 Unspecified asthma, uncomplicated | CPT/HCPCS: G0463 ==

== ENCOUNTER 2018-07-12 16:09 | Day surgery (SDC) | payer OTHER | END 2018-07-12 23:10 | disposition home or self-care (01) | LOC: WOUND 16:09 | DX: I87.2 Venous insufficiency (chronic) (peripheral) (principal); S80.11XA Contusion of right lower leg, initial encounter; L97.912 Non-pressure chronic ulcer of unspecified part of right lower leg with fat layer exposed; I11.0 Hypertensive heart disease with heart failure; I50.22 Chronic systolic (congestive) heart failure; I25.10 Atherosclerotic heart disease of native coronary artery without angina pectoris | CPT/HCPCS: G0463 ==

== ENCOUNTER 2018-07-17 19:12 | Emergency (ER) | payer OTHER ==
[~2018-07-17] VITALS: Ht 152.4 cm; Wt 54.4 kg
[2018-07-17] MEDS ORDERED: Norco 5-325 Ta1 EACH PO (19:39)
[2018-07-17 20:10] LABS: BASOPHILS ABSOLUTE AUTO 0.03 K/mm3 (0.00-0.23); BASOPHILS PERCENT AUTO 0 % (0-2); EOSINOPHILS ABSOLUTE AUTO 0.05 K/mm3 (0.00-0.68); EOSINOPHILS PERCENT AUTO 1 % (0-6); Hematocrit 35.7 % (33.0-51.0); Hemoglobin 11.4 g/dL (11.5-16.0); IMMATURE GRAN ABSOLUTE AUTO 0.03 K/mm3 (0.00-0.10); IMMATURE GRAN PERCENT AUTO 0 % (0-1); LYMPHOCYTES ABSOLUTE AUTO 1.36 K/mm3 (0.84-5.20); LYMPHOCYTES PERCENT AUTO 16 % (21-46); MONOCYTES ABSOLUTE AUTO 1.37 K/mm3 (0.16-1.47); MONOCYTES PERCENT AUTO 16 % (4-13); Mean Corpuscular HGB 32.4 pg (26.0-34.0); Mean Corpuscular HGB Conc 31.9 g/dL (31.5-36.5); Mean Corpuscular Volume 101 fL (80-100); NEUTROPHILS ABSOLUTE AUTO 5.94 K/mm3 (1.96-9.15); NEUTROPHILS PERCENT AUTO 68 % (41-73); Platelet Count 267 K/mm3 (150-400); RDW Coefficient Variation 13.7 % (11.7-14.2); RDW Standard Deviation 50.7 fL (35.1-46.3); Red Blood Cell Count 3.52 M/mm3 (3.80-5.20); White Blood Cell Count 8.78 K/mm3 (4.00-11.30)
[2018-07-17 20:36] LABS: Alanine Aminotransfer (ALT/SGP 20 U/L (12-78); Albumin, Blood 3.6 g/dL (3.4-5.0); Albumin/Globulin Ratio 1.1 (0.8-1.8); Alk Phos 52 U/L (50-136); Anion Gap 8 mmol/L (6-16); Aspartate Aminotrans (AST/SGOT 22 U/L (12-37); Bilirubin, Total 0.6 mg/dL (0.1-1.0); Blood Urea Nitrogen 18 mg/dL (8-24); Bun/Creatinine Ratio 27.5 (12.0-20.0); CO2, Blood 23 mmol/L (21-32); Calcium, Blood 8.6 mg/dL (8.5-10.1); Chloride, Blood 109 mmol/L (98-108); Creatinine, Blood 0.65 mg/dL (0.40-1.00); Globulin, Blood 3.4 g/dL (2.2-4.0); Glomerular Filtration Rate >60 (60-); Glucose, Blood 107 mg/dL (70-99); Sodium, Blood 140 mmol/L (136-145)
[2018-07-17] MEDS ORDERED: ONDA4ODT MM (21:24)
[2018-07-17] MEDS ORDERED: Cleocin HCl300 MG PO (21:24)
== END 2018-07-17 22:55 | disposition home or self-care (01) ==
LOC: ER 19:12
PROVIDERS: Physician Assistant
DX: T81.42XA Infection following a procedure, deep incisional surgical site, initial encounter (principal); L03.115 Cellulitis of right lower limb; Z88.0 Allergy status to penicillin; Z88.8 Allergy status to other drugs, medicaments and biological substances; Z88.2 Allergy status to sulfonamides; Z88.1 Allergy status to other antibiotic agents; Z88.5 Allergy status to narcotic agent; Z79.899 Other long term (current) drug therapy; I10 Essential (primary) hypertension; I25.2 Old myocardial infarction
CPT/HCPCS: 36415; 80053; 85025; 87070; 87077; 87147; 87186; 87205; 93971; 96365; 99284-25

== ENCOUNTER 2018-07-21 10:25 | Day surgery (SDC) | payer OTHER ==
[~2018-07-21 10:25] MED LIST changes: +Cleocin HCl300 MG PO
== END 2018-07-21 22:35 | disposition home or self-care (01) ==
LOC: WOUND 10:25
DX: L97.912 Non-pressure chronic ulcer of unspecified part of right lower leg with fat layer exposed (principal); S80.11XD Contusion of right lower leg, subsequent encounter; I87.2 Venous insufficiency (chronic) (peripheral); I10 Essential (primary) hypertension; I25.2 Old myocardial infarction; J45.909 Unspecified asthma, uncomplicated; I25.10 Atherosclerotic heart disease of native coronary artery without angina pectoris
CPT/HCPCS: G0463

== ENCOUNTER 2018-07-23 09:03 | Day surgery (SDC) | payer OTHER | END 2018-07-24 23:01 | disposition home or self-care (01) | LOC: WOUND 09:03 | DX: L97.812 Non-pressure chronic ulcer of other part of right lower leg with fat layer exposed (principal); S80.11XA Contusion of right lower leg, initial encounter; I87.2 Venous insufficiency (chronic) (peripheral); I73.9 Peripheral vascular disease, unspecified; I11.0 Hypertensive heart disease with heart failure; I50.22 Chronic systolic (congestive) heart failure; I25.10 Atherosclerotic heart disease of native coronary artery without angina pectoris; J45.909 Unspecified asthma, uncomplicated ==

== ENCOUNTER 2018-07-30 00:21 | Day surgery (SDC) | payer OTHER | END 2018-07-30 23:25 | disposition home or self-care (01) | LOC: WOUND 00:21 | DX: L97.812 Non-pressure chronic ulcer of other part of right lower leg with fat layer exposed (principal); S80.11XD Contusion of right lower leg, subsequent encounter; I87.2 Venous insufficiency (chronic) (peripheral); I11.0 Hypertensive heart disease with heart failure; I50.22 Chronic systolic (congestive) heart failure; I25.10 Atherosclerotic heart disease of native coronary artery without angina pectoris; I25.2 Old myocardial infarction; J45.909 Unspecified asthma, uncomplicated ==

== ENCOUNTER 2018-08-06 00:36 | Day surgery (SDC) | payer OTHER | END 2018-08-06 22:55 | disposition home or self-care (01) | LOC: WOUND 00:36 | DX: L97.912 Non-pressure chronic ulcer of unspecified part of right lower leg with fat layer exposed (principal); S80.11XD Contusion of right lower leg, subsequent encounter; I11.0 Hypertensive heart disease with heart failure; I50.22 Chronic systolic (congestive) heart failure; I25.10 Atherosclerotic heart disease of native coronary artery without angina pectoris; I87.2 Venous insufficiency (chronic) (peripheral) | CPT/HCPCS: G0463 ==

== ENCOUNTER 2018-08-07 12:44 | Emergency (ER) | payer OTHER ==
[~2018-08-07] VITALS: Ht 162.6 cm; Wt 63.5 kg
== END 2018-08-07 13:05 | disposition home or self-care (01) ==
LOC: ER 12:44
DX: S81.812A Laceration without foreign body, left lower leg, initial encounter (principal); W22.8XXA Striking against or struck by other objects, initial encounter; Z88.0 Allergy status to penicillin; Z88.2 Allergy status to sulfonamides; Z88.8 Allergy status to other drugs, medicaments and biological substances; Z88.1 Allergy status to other antibiotic agents; Z79.899 Other long term (current) drug therapy; I25.2 Old myocardial infarction; I10 Essential (primary) hypertension
CPT/HCPCS: 99283

== ENCOUNTER 2018-08-17 03:22 | Day surgery (SDC) | payer OTHER ==
[~2018-08-17] VITALS: Ht 152.4 cm; Wt 54.2 kg
[~2018-08-17 03:22] MED LIST changes: +LORA.5
[2018-08-17 10:24] LABS: BASOPHILS ABSOLUTE AUTO 0.04 K/mm3 (0.00-0.23); BASOPHILS PERCENT AUTO 0 % (0-2); EOSINOPHILS ABSOLUTE AUTO 0.08 K/mm3 (0.00-0.68); EOSINOPHILS PERCENT AUTO 1 % (0-6); Hematocrit 36.5 % (33.0-51.0); Hemoglobin 11.7 g/dL (11.5-16.0); IMMATURE GRAN ABSOLUTE AUTO 0.04 K/mm3 (0.00-0.10); IMMATURE GRAN PERCENT AUTO 0 % (0-1); LYMPHOCYTES ABSOLUTE AUTO 1.01 K/mm3 (0.84-5.20); LYMPHOCYTES PERCENT AUTO 11 % (21-46); MONOCYTES ABSOLUTE AUTO 1.15 K/mm3 (0.16-1.47); MONOCYTES PERCENT AUTO 12 % (4-13); Mean Corpuscular HGB 32.3 pg (26.0-34.0); Mean Corpuscular HGB Conc 32.1 g/dL (31.5-36.5); Mean Corpuscular Volume 101 fL (80-100); NEUTROPHILS PERCENT AUTO 76 % (41-73); Platelet Count 284 K/mm3 (150-400); RDW Coefficient Variation 13.7 % (11.7-14.2); RDW Standard Deviation 50.8 fL (35.1-46.3); Red Blood Cell Count 3.62 M/mm3 (3.80-5.20); White Blood Cell Count 9.52 K/mm3 (4.00-11.30)
[2018-08-17] MEDS ORDERED: ESTRACE VAG (10:39)
[2018-08-17 11:08] LABS: International Normalized Ratio 1.07; Prothrombin Time Results 11.3 Sec (9.7-11.5)
[2018-08-17 11:17] LABS: Anion Gap 6 mmol/L (6-16); Blood Urea Nitrogen 20 mg/dL (8-24); CO2, Blood 25 mmol/L (21-32); Calcium, Blood 8.8 mg/dL (8.5-10.1); Chloride, Blood 105 mmol/L (98-108); Creatinine, Blood 0.77 mg/dL (0.40-1.00); Glomerular Filtration Rate >60 (60-); Glucose, Blood 101 mg/dL (70-99); Potassium, Blood 3.7 mmol/L (3.5-5.5); Sodium, Blood 136 mmol/L (136-145)
--- NOTE | 2018-08-17 16:18 | NUR ---
ICU ADMIT PT ARRIVES TO ICU 16 AT 1535 FROM DISPLAY DESIGNER OUTSIDE EXTENDED RECOVERY, POST PERIPHERAL INTERVENTION. PT HAS ARTERIAL SHEATH IN PLACE TO LEFT GROIN. SITE STABLE WITHOUT BLEEDING, BRUISING OR HEMATOMA. DISTAL EXTREMITY WARM AND PINK, PEDAL PULSE PALPABLE. PT DENIES PAIN, NUMBNESS OR TINGLING. PT HAS WOUNDS TO BILATERAL SHINS WHICH HAVE BEEN PRESENT SINCE JANUARY PER PT. DRESSINGS INTACT. PT DENIES ANY PAIN AT THIS TIME. VITAL SIGNS STABLE. PT DENIES ANY NAUSEA OR DSYPNEA. PT INSTRUCTED TO REMAIN FLAT, NOT TO LIFT HEAD OR FLEX LEG GROIN WHILE SHEATH IN PLACE. BED POSITIONED IN REVERSE [place] FOR COMFORT. PLAN TO CHECK PTT AT 1715 AND PULL SHEATH WHEN PTT <40 AND SBP <170. WILL CONTINUE TO MONITOR PT AND GROIN SITE CLOSELY.
--- NOTE | 2018-08-17 17:15 | NUR ---
HEMATOMA/MANUAL PRESSURE GROIN CHECK REVEALS MARBLE SIZED HEMATOMA DIRECTLY ABOVE SHEATH. MANUAL PRESSURE HELD, HEMATOMA REDUCED AND EXPRESSED AT INSERTION SITE. GAUZE UNDER DRESSING MILDLY SATURATED. BRUISING NOTED AND MARKED FOR FURTHER ASSESSMENTS. PT REPORTS NO PAIN, SHORTNESS OF BREATH. DENIES NUMBNESS/TINGLING TO DISTAL EXTREMITY. DISTAL PULSES INTACT. DR Palomares NOTIFIED. WILL CONTINUE TO MONITOR CLOSELY.
--- NOTE | 2018-08-17 18:51 | NUR ---
SHIFT SUMMARY GROIN SITE REMAINS STABLE SINCE PREVIOUS NOTE - NO SIGNS OF FURTHER BLEEDING, BRUISING OR HEMATOMA FORMATION. DISTAL CIRCULATION REMAINS INTACT. EQUAL PEDAL PULSES BILATERALLY. PT DENIES ANY PAIN, NUMBNESS OR TINGLING. VITAL SIGNS STABLE. PT CONTINUES ON ROOM AIR, DENIES ANY SHORTNESS OF BREATH. PT REMAINS SUPINE WITH SHEATH IN PLACE. IV PROTAMINE ADMINISTERED PER ORDERS, NEXT PTT CHECK AT 1930. BRIZUELA CATHETER PLACED, IMMEDIATE RETURN OF 550ML OF CLEAR YELLOW URINE. WILL CONTINUE TO MONITOR PT AND GIVE HANDOFF REPORT TO ONCOMING RN WHEN AVAILABLE.
--- NOTE | 2018-08-17 20:00 | NUR ---
ASSUMED CARE OF PT AT 1915. REPORT RECEIVED AT BEDSIDE. PT PRESENTS IN BED. LAYING FLAT SECONDARY TO HAVING AN ARTERIAL SHEATH IN HER LEFT FEMORAL ARTERY. SITE VERIFIED WITH OFFGOING RN. NOTED SOME BLOOD ON DRESSING WHICH OFFGOING RN STATES THAT IT HAS NOT CHANGED SINCE SMALL HEMATOMA WAS REDUCED EARLIER. PT MADE AWARE OF PROCESS OF REMOVING SHEATH. AWAITING PTT RESULTS. WILL REVIEW CHART AND PLAN OF CARE FOR THIS PT.
--- NOTE | 2018-08-17 22:30 | NUR ---
SHEATH REMOVED FROM LEFT FEMORAL ARTERY. MANUAL PRESSURE HELD FOR 25 MINUTES. HEMASTATIS ACHIEVE. STEPHANY DRESSING APPLIED TO SITE AND SECURED WITH TEGRADERM. PT TOLERATES THIS PROCEDURE FAIR. DID PREMEDICATE PT WITH 25 MCG FENTANYL FOR PROCEDURE TOLERANCE. SHEATH OUT AT 8 AND MANUAL PRESSURE COMPLETE AT 2143. GOOD DISTAL CMS NOTED. WILL CONTINUE TO MONITOR.
--- NOTE | 2018-08-18 01:32 | NUR ---
PT CONTINUES WITHOUT OOZING OR HEMATOMA FORMING AT FEMORAL ACCESS SITE. NO COMPLAINTS OF PAIN OR NAUSEA. PT REMAINING SUPINE FOR SIX HOURS AFTER SHEATH PULL. SHE MAY MOVE ABOUT AT 0345 THIS AM.
--- NOTE | 2018-08-18 04:18 | NUR ---
PT COMPLETES SUPINE POST FEMORAL SHEATH REMOVAL RESTRICTIONS. LEFT GROIN SITE WITHOUT HEMATOMA OR OOZING. STEPHANY DRESSING DOSE HAVE SMALL AMOUNT OF SHADOW DRAINAGE FROM SHEATH PULL. HAS NOT GAINED IN SIZE. ECCHYMOSIS AROUND SITE ALSO UNCHANGED FROM SHIFT CHANGE ASSESSMENT. PT'S VITALS HAVE REMAINED WNL THROUGHOUT THE NIGHT. WILL CONTINUE TO MONITOR PT.
--- NOTE | 2018-08-18 06:46 | NUR ---
PT REQUIRES 1 L/M O2 PER NASAL CANNNULA WHILE ASLEEP. HAS BEEN ABLE TO MOVE ABOUT BED ON HER OWN. HAVE REMOVED PT'S BRIZUELA CATHETER THIS AM IN ANTICIPATION OF BEING DISCHARGED LATER THIS DAY. PT IN AGREEMENT WITH HAVING CATHETER REMOVED. WILL CONTINUE TO MONITOR PT, AND WILL REPORT OFF TO ONCOMING RN.
--- NOTE | 2018-08-18 09:15 | NUR ---
ASSUMED CARE: REPORT RECEIVED FROM JHONATAN Cesar RN. ASSUMED CARE OF THIS PT AT APPROX 0700. ON ASSESSMENT, THE PT IS A&O, PLEASANT & COOPERATIVE. ANGIO SITE TO L GROIN HAS A MOD AMNT OF DRIED SEROSANGUINOUS DRAINAGE NOTED TO D-STAT. DARK PURPLE BRUISING NOTED BELOW PUNCTURE SITE, AREA UNCHANGED T/O TAPE EDITOR PER REPORT. ASSESSMENT CHARTED, PLAN IS FOR PT TO D/C HOME THIS AM ONCE ORDERS PLACED. WILL CONTINUE TO MONITOR & UPDATE NEEDED.
--- NOTE | 2018-08-18 10:56 | NUR ---
ASSUMED CARE: REPORT RECEIVED FROM JHONATAN Cesar RN. ASSUMED CARE OF THIS PT AT APPROX 0700. ON ASSESSMENT, THE PT IS A&O, PLEASANT & COOPERATIVE. ANGIO SITE TO L GROIN HAS A MOD AMNT OF DRIED SEROSANGUINOUS DRAINAGE NOTED TO STEPHANY DRESSING. DARK PURPLE BRUISING NOTED BELOW PUNCTURE SITE, AREA UNCHANGED T/O GENERATION MECHANIC HELPER PER REPORT. PLAN IS FOR PT TO D/C HOME THIS AM ONCE ORDERS PLACED. WILL CONTINUE TO MONITOR & UPDATE NEEDED.
--- NOTE | 2018-08-18 13:46 | NUR ---
DISCHARGE TO HOME: D/C TEACHING IS COMPLETED. ALL MONITORS & PIV HAVE BEEN REMOVED FROM PT. D/C PACKET, STENT CARD & ALL BELONGINGS TAKEN OUT BY PT's FRIEND WHO HAS PICKED HER UP. NO MED CHANGES TO BE CALLED TO PHARMACY. PT VERBALIZES UNDERSTANDING OF GROIN SITE PRECAUTIONS & HAS EDUCATIONAL MATERIALS FOR REFERENCE. TAKEN OUT VIA AT 1345.
== END 2018-08-18 13:51 | disposition home or self-care (01) ==
LOC: MHTC 03:22 → LAB 03:22 → MHTC 09:53 → ICUW 15:07 → MHTC 08-18 13:51
PROVIDERS: Radiology Diagnostic Radiology
DX: I70.201 Unspecified atherosclerosis of native arteries of extremities, right leg (principal); I11.0 Hypertensive heart disease with heart failure; I50.32 Chronic diastolic (congestive) heart failure; I25.10 Atherosclerotic heart disease of native coronary artery without angina pectoris; J45.909 Unspecified asthma, uncomplicated; Z88.8 Allergy status to other drugs, medicaments and biological substances; Z88.5 Allergy status to narcotic agent; Z88.1 Allergy status to other antibiotic agents; Z88.0 Allergy status to penicillin; Z79.899 Other long term (current) drug therapy
CPT/HCPCS: 36415; 37221; 37225; 37228; 75625; 75716; 75774; 80048; 85025; 85347; 85610; 85730; 99152; 99153; C1714; C1725; C1769; C1876; C1884; C1887; C1894; C2623; J1644; J2250; J2720; J3010; J7030; Q9967

== ENCOUNTER 2018-08-20 09:00 | Day surgery (SDC) | payer OTHER ==
[~2018-08-20 09:00] MED LIST changes: +ESTRACE VAG; -LORA.5
[2018-08-30] MEDS ORDERED: TORSE20 PO (16:50)
[2018-08-30] MEDS ORDERED: LOSA25 PO (16:51)
== END 2018-08-20 22:48 | disposition home or self-care (01) ==
LOC: WOUND 09:00
DX: L97.812 Non-pressure chronic ulcer of other part of right lower leg with fat layer exposed (principal); I87.2 Venous insufficiency (chronic) (peripheral); I73.9 Peripheral vascular disease, unspecified; I11.0 Hypertensive heart disease with heart failure; I50.22 Chronic systolic (congestive) heart failure; I25.10 Atherosclerotic heart disease of native coronary artery without angina pectoris; I25.2 Old myocardial infarction; J45.909 Unspecified asthma, uncomplicated
CPT/HCPCS: G0463

== ENCOUNTER 2018-08-27 09:00 | Day surgery (SDC) | payer OTHER ==
[2018-08-30] MEDS ORDERED: TORSE20 PO (16:50)
[2018-08-30] MEDS ORDERED: LOSA25 PO (16:51)
== END 2018-08-28 00:06 | disposition home or self-care (01) ==
LOC: WOUND 09:00
DX: S81.802A Unspecified open wound, left lower leg, initial encounter (principal); L97.812 Non-pressure chronic ulcer of other part of right lower leg with fat layer exposed; L97.829 Non-pressure chronic ulcer of other part of left lower leg with unspecified severity; I73.9 Peripheral vascular disease, unspecified; I11.0 Hypertensive heart disease with heart failure; I50.22 Chronic systolic (congestive) heart failure; I25.10 Atherosclerotic heart disease of native coronary artery without angina pectoris; I25.2 Old myocardial infarction

== ENCOUNTER 2018-09-03 09:05 | Day surgery (SDC) | payer OTHER ==
[~2018-09-03 09:05] MED LIST changes: +LOSA25 PO
== END 2018-09-03 23:39 | disposition home or self-care (01) ==
LOC: WOUND 09:05
DX: L97.812 Non-pressure chronic ulcer of other part of right lower leg with fat layer exposed (principal); L97.829 Non-pressure chronic ulcer of other part of left lower leg with unspecified severity; I11.0 Hypertensive heart disease with heart failure; I50.22 Chronic systolic (congestive) heart failure; S80.11XD Contusion of right lower leg, subsequent encounter; I87.2 Venous insufficiency (chronic) (peripheral); J45.909 Unspecified asthma, uncomplicated; I25.10 Atherosclerotic heart disease of native coronary artery without angina pectoris; I10 Essential (primary) hypertension; M06.9 Rheumatoid arthritis, unspecified

== ENCOUNTER 2018-09-08 09:59 | Day surgery (SDC) | payer OTHER ==
[~2018-09-08] VITALS: Ht 149.9 cm; Wt 54.5 kg
[2018-09-08] MEDS ORDERED: Toprol Xl50 MG PO (10:45)
[2018-09-08] MEDS ORDERED: CLOP75 PO (15:44)
--- NOTE | 2018-09-08 15:46 | NUR ---
INITIAL ASSESSMENT PATIENT ARRIVED FROM QC SCIENTIST TO UNIT AT 1535 ACCOMPANIED BY TWO QC SCIENTIST RNS. PATIENT DROWSY, ALERT AND ORIENTED X4. PATIENT AFEBRILE. PATIENT DENIES PAIN EXCEPT FOR WHEN RIGHT FEMORAL SITE IS TOUCHED. PATIENT SLIGHTLY WEAK. PATIENT SATTING 90% AND GREATER ON RA TO 2 L NC. LUNGS CLEAR THROUGHOUT. SHALLOW BREATHS NOTED. PATIENT IN A. FIB, HR 70S TO LOW 100S. BP STABLE. TIBIAL PULSES DOPPLER. DORSAL PEDAL PULSES 1+. GI WNL. WNL. R FEMORAL SHEATH IN PLACE. NO CURRENT BLEEDING, BRUISES OR HEMATOMA NOTED. SITE SOFT TO PALPATION. PATIENT HAS NON-HEALING ULCERS TO BILAT SHINS- DRESSING IN PLACE AND C/D/I. INSTRUCTIONS FOR PATIENT TO LIE SUPINE FOR 4 HOURS, CAN BE UP AFTER 5 AND IF SITE STILL REMAINS STABLE THEN CAN DC HOME. DC INSTRUCTIONS/ PACKET PREPARED BY QC SCIENTIST RN AND ARE IN PATIENT ROOM. BED LOW, CALL LIGHT IN REACH. PATIENT ORIENTED TO UNIT, ROOM, AND CALL LIGHT. WILL CONTINUE TO MONITOR FREQUENTLY.
--- NOTE | 2018-09-08 15:49 | NUR ---
R FEM SHEATH PULLED BY FIRE EXTINGUISHER CHARGER RN. FIRE EXTINGUISHER CHARGER RN NOW HOLDING PRESSURE.
--- NOTE | 2018-09-08 16:15 | NUR ---
MANUAL PRESSURE APPLIED TO R FEM SITE FOR 25 MINUTES. STEPHANY PAD SATURATED WITH BLOOD UNDERNEATH TEGADERM BUT NO FURTHER BLEEDING NOTED. NO BRUISING OR HEMATOMA NOTED. SITE SOFT TO PALPATION. WILL CONTINUE TO MONITOR FREQUENTLY.
--- NOTE | 2018-09-08 19:13 | NUR ---
SHIFT SUMMARY PATIENT REMAINED ALERT AND ORIENTED. DROWSINESS WORE OFF. PATIENT REMAINS AFEBRILE. NO COMPLAINTS OF PAIN UNLESS R FEMORAL SITE TOUCHED. PATIENT REMAINS SUPINE AND IS AWARE THAT SHE NEEDS TO REMAIN SUPINE AND NOT TO LIFT HER HEAD OR MOVE HER RIGHT LEG UNTIL IT HAS BEEN 4 HOURS SINCE SHEATH REMOVED. PATIENT SATTING WELL ON RA TO 2 L NC. PATIENT REMAINS IN A.FIB, HR 60S TO LOW 100S. BP HAS REMAINED STABLE. TIBIAL PULSES REMAIN DOPPLER AND DORSAL PULSES REMAIN VERY FAINT. GI WNL. WNL. PATIENT HAS BEEN ASSISTED WITH BED SMALLWOOD TWICE THIS SHIFT- 2 UNMEASURED VOIDS DOCUMENTED. R FEMORAL SITE, ALONG WITH PULSES, HAVE BEEN CHECKED EACH TIME RECOVERY SCORING DOCUMENTED. SITE REMAINS WITH NO BLEEDING, BRUISING, OR HEMATOMA. SITE SOFT TO PALPATION. NO CHANGE IN SKIN. ONCOMING PROGRAM OR PROJECT ADMINISTRATOR NURSE INTRODUCED TO PATIENT- PULSES AND R FEM SITE CHECKED WITH NURSE.
--- NOTE | 2018-09-08 22:10 | NUR ---
DISCHARGE HOME READ DISCHARGE INSTRUCTIONS AND MEDICATION INSTRUCTIONS TO PT AND PT VERBALIZED UNDERSTANDING AND SIGNED PAPER WORK. VITAL SIGNS STABLE PRIOR TO DISCHARGE AND RIGHT FEMORAL GROIN SITE STABLE WITH DRESSING INTACT. REVIEWED CARE OF GROIN SITE WITH PT AND PT VERBALIZED UNDERSTANDING. FRIEND ARELI HERE TO TAKE PT HOME. ALL PT BELONGINGS SENT WITH PATIENT. PT DISCHARGED VIA WHEEL CHAIR AT 2209.
== END 2018-09-08 22:09 | disposition home or self-care (01) ==
LOC: MHTC 09:59 → ICUW 15:25 → MHTC 22:09
DX: I70.202 Unspecified atherosclerosis of native arteries of extremities, left leg (principal); I70.8 Atherosclerosis of other arteries; I11.0 Hypertensive heart disease with heart failure; I50.32 Chronic diastolic (congestive) heart failure; I25.10 Atherosclerotic heart disease of native coronary artery without angina pectoris; J45.909 Unspecified asthma, uncomplicated; Z88.0 Allergy status to penicillin; Z88.2 Allergy status to sulfonamides; Z88.1 Allergy status to other antibiotic agents; Z88.5 Allergy status to narcotic agent; Z88.8 Allergy status to other drugs, medicaments and biological substances; Z79.899 Other long term (current) drug therapy
CPT/HCPCS: 37221; 37225; 37228; 37232; 75625; 75716; 75774; 85347; 93005; 93010; 99152; 99153; C1714; C1725; C1769; C1876; C1884; C1887; C1894; C2623; J1644; J2250; J3010; J7030; Q9967

== ENCOUNTER 2018-09-10 09:01 | Day surgery (SDC) | payer OTHER ==
[~2018-09-10 09:01] MED LIST changes: +Toprol Xl50 MG PO
== END 2018-09-10 23:41 | disposition home or self-care (01) ==
LOC: WOUND 09:01
DX: L97.812 Non-pressure chronic ulcer of other part of right lower leg with fat layer exposed (principal); L97.929 Non-pressure chronic ulcer of unspecified part of left lower leg with unspecified severity; I87.2 Venous insufficiency (chronic) (peripheral); I11.0 Hypertensive heart disease with heart failure; I50.22 Chronic systolic (congestive) heart failure; I73.9 Peripheral vascular disease, unspecified; J45.909 Unspecified asthma, uncomplicated; I25.10 Atherosclerotic heart disease of native coronary artery without angina pectoris; I25.2 Old myocardial infarction
CPT/HCPCS: G0463

== ENCOUNTER 2018-09-18 23:29 | Emergency (ER) | payer OTHER ==
[~2018-09-18] VITALS: Ht 152.4 cm; Wt 54.0 kg
[2018-09-19 00:14] LABS: BASOPHILS ABSOLUTE AUTO 0.04 K/mm3 (0.00-0.23); BASOPHILS PERCENT AUTO 0 % (0-2); EOSINOPHILS ABSOLUTE AUTO 0.14 K/mm3 (0.00-0.68); EOSINOPHILS PERCENT AUTO 2 % (0-6); Hematocrit 36.8 % (33.0-51.0); Hemoglobin 11.6 g/dL (11.5-16.0); IMMATURE GRAN ABSOLUTE AUTO 0.04 K/mm3 (0.00-0.10); IMMATURE GRAN PERCENT AUTO 0 % (0-1); LYMPHOCYTES ABSOLUTE AUTO 1.53 K/mm3 (0.84-5.20); LYMPHOCYTES PERCENT AUTO 16 % (21-46); MONOCYTES ABSOLUTE AUTO 1.19 K/mm3 (0.16-1.47); MONOCYTES PERCENT AUTO 13 % (4-13); Mean Corpuscular HGB 30.9 pg (26.0-34.0); Mean Corpuscular HGB Conc 31.5 g/dL (31.5-36.5); Mean Corpuscular Volume 98 fL (80-100); Mean Platelet Volume 9.1 fL (9.1-12.4); NEUTROPHILS ABSOLUTE AUTO 6.41 K/mm3 (1.96-9.15); NEUTROPHILS PERCENT AUTO 69 % (41-73); Platelet Count 269 K/mm3 (150-400); RDW Coefficient Variation 13.5 % (11.7-14.2); RDW Standard Deviation 48.2 fL (35.1-46.3); Red Blood Cell Count 3.75 M/mm3 (3.80-5.20); White Blood Cell Count 9.35 K/mm3 (4.00-11.30)
[2018-09-19 00:26] LABS: Alanine Aminotransfer (ALT/SGP 31 U/L (12-78); Albumin/Globulin Ratio 1.2 (0.8-1.8); Alk Phos 73 U/L (50-136); Anion Gap 6 mmol/L (6-16); Aspartate Aminotrans (AST/SGOT 27 U/L (12-37); Bilirubin, Total 0.3 mg/dL (0.1-1.0); Blood Urea Nitrogen 16 mg/dL (8-24); Bun/Creatinine Ratio 20.6 (12.0-20.0); CO2, Blood 26 mmol/L (21-32); Calcium, Blood 8.3 mg/dL (8.5-10.1); Chloride, Blood 108 mmol/L (98-108); Creatinine, Blood 0.78 mg/dL (0.40-1.00); Globulin, Blood 3.4 g/dL (2.2-4.0); Glomerular Filtration Rate >60 (60-); Glucose, Blood 115 mg/dL (70-99); Potassium, Blood 3.5 mmol/L (3.5-5.5); Sodium, Blood 140 mmol/L (136-145); Total Protein, Blood 7.4 g/dL (6.4-8.2)
[2018-09-19] MEDS ORDERED: Cleocin HCl150 MG PO (01:21)
== END 2018-09-19 01:31 | disposition home or self-care (01) ==
LOC: ER 23:29
PROVIDERS: Emergency Medicine
DX: L03.115 Cellulitis of right lower limb (principal); Z88.0 Allergy status to penicillin; Z88.8 Allergy status to other drugs, medicaments and biological substances; Z88.2 Allergy status to sulfonamides; Z88.1 Allergy status to other antibiotic agents; Z79.899 Other long term (current) drug therapy; I10 Essential (primary) hypertension; I25.2 Old myocardial infarction; J45.909 Unspecified asthma, uncomplicated
CPT/HCPCS: 80053; 85025; 93971; 99284-25; A9270

== ENCOUNTER 2018-09-24 09:07 | Day surgery (SDC) | payer OTHER ==
[~2018-09-24 09:07] MED LIST changes: +Cleocin HCl150 MG PO
== END 2018-09-25 00:18 | disposition home or self-care (01) ==
LOC: WOUND 09:07
DX: L97.811 Non-pressure chronic ulcer of other part of right lower leg limited to breakdown of skin (principal); L97.829 Non-pressure chronic ulcer of other part of left lower leg with unspecified severity; I11.0 Hypertensive heart disease with heart failure; I50.22 Chronic systolic (congestive) heart failure; I25.10 Atherosclerotic heart disease of native coronary artery without angina pectoris; I25.2 Old myocardial infarction; J45.909 Unspecified asthma, uncomplicated

== ENCOUNTER 2018-10-01 09:03 | Day surgery (SDC) | payer OTHER | END 2018-10-01 23:54 | disposition home or self-care (01) | LOC: WOUND 09:03 | DX: L97.911 Non-pressure chronic ulcer of unspecified part of right lower leg limited to breakdown of skin (principal); L97.929 Non-pressure chronic ulcer of unspecified part of left lower leg with unspecified severity; I73.9 Peripheral vascular disease, unspecified; I87.2 Venous insufficiency (chronic) (peripheral); I11.0 Hypertensive heart disease with heart failure; I50.22 Chronic systolic (congestive) heart failure; I25.10 Atherosclerotic heart disease of native coronary artery without angina pectoris ==

== ENCOUNTER 2018-10-08 02:40 | Day surgery (SDC) | payer OTHER | END 2018-10-08 23:21 | disposition home or self-care (01) | LOC: WOUND 02:40 | DX: L97.912 Non-pressure chronic ulcer of unspecified part of right lower leg with fat layer exposed (principal); L97.929 Non-pressure chronic ulcer of unspecified part of left lower leg with unspecified severity; S80.11XD Contusion of right lower leg, subsequent encounter; I87.2 Venous insufficiency (chronic) (peripheral); I73.9 Peripheral vascular disease, unspecified; I11.0 Hypertensive heart disease with heart failure; I50.22 Chronic systolic (congestive) heart failure; I25.10 Atherosclerotic heart disease of native coronary artery without angina pectoris ==

== ENCOUNTER 2018-10-15 02:17 | Day surgery (SDC) | payer OTHER | END 2018-10-15 23:30 | disposition home or self-care (01) | LOC: WOUND 02:17 | DX: L97.912 Non-pressure chronic ulcer of unspecified part of right lower leg with fat layer exposed (principal); L97.929 Non-pressure chronic ulcer of unspecified part of left lower leg with unspecified severity; I87.2 Venous insufficiency (chronic) (peripheral); I11.0 Hypertensive heart disease with heart failure; I50.22 Chronic systolic (congestive) heart failure; I25.10 Atherosclerotic heart disease of native coronary artery without angina pectoris | CPT/HCPCS: G0463 ==

== ENCOUNTER 2018-10-19 05:01 | Emergency (ER) | payer OTHER ==
[~2018-10-19] VITALS: Ht 154.9 cm; Wt 54.4 kg
[2018-10-19 05:30] LABS: Calcium, Ionized (POC) 1.16 mmol/L (1.10-1.46); Chloride (POC) 101 mmol/L (98-108); Creatinine (POC) 0.8 mg/dL (0.6-1.0); Glucose (ISTAT POC) 107 mg/dL (70-99); Hemoglobin (POC) 12.6 g/dL (12.0-16.0); Potassium (POC) 3.8 mmol/L (3.5-5.5); Sodium (POC) 137 mmol/L (135-148); Total CO2 (POC) 21 mmol/L (21-32)
== END 2018-10-19 06:45 | disposition home or self-care (01) ==
LOC: ER 05:01
PROVIDERS: Emergency Medicine
DX: S01.00XA Unspecified open wound of scalp, initial encounter (principal); S00.83XA Contusion of other part of head, initial encounter; W19.XXXA Unspecified fall, initial encounter; Z88.0 Allergy status to penicillin; Z88.8 Allergy status to other drugs, medicaments and biological substances; Z88.2 Allergy status to sulfonamides; Z88.1 Allergy status to other antibiotic agents; Z79.899 Other long term (current) drug therapy; I25.2 Old myocardial infarction; I10 Essential (primary) hypertension; E78.00 Pure hypercholesterolemia, unspecified; J45.909 Unspecified asthma, uncomplicated
CPT/HCPCS: 36415; 80047; 85014; 99283

== ENCOUNTER 2018-10-29 09:03 | Day surgery (SDC) | payer OTHER | END 2018-10-30 00:24 | disposition home or self-care (01) | LOC: WOUND | DX: L97.912 Non-pressure chronic ulcer of unspecified part of right lower leg with fat layer exposed (principal); L97.929 Non-pressure chronic ulcer of unspecified part of left lower leg with unspecified severity; I87.2 Venous insufficiency (chronic) (peripheral); I11.0 Hypertensive heart disease with heart failure; I50.22 Chronic systolic (congestive) heart failure; I25.10 Atherosclerotic heart disease of native coronary artery without angina pectoris; I73.9 Peripheral vascular disease, unspecified ==

== ENCOUNTER 2018-11-05 08:48 | Day surgery (SDC) | payer OTHER | END 2018-11-05 23:19 | disposition home or self-care (01) | LOC: WOUND 08:48 | DX: L97.811 Non-pressure chronic ulcer of other part of right lower leg limited to breakdown of skin (principal); L97.929 Non-pressure chronic ulcer of unspecified part of left lower leg with unspecified severity; I87.2 Venous insufficiency (chronic) (peripheral); I73.9 Peripheral vascular disease, unspecified; I11.0 Hypertensive heart disease with heart failure; I50.22 Chronic systolic (congestive) heart failure; I25.10 Atherosclerotic heart disease of native coronary artery without angina pectoris; I83.91 Asymptomatic varicose veins of right lower extremity | CPT/HCPCS: 93971 ==

== ENCOUNTER → 2018-11-05 | Outpatient (CLI) | payer OTHER ==
[2018-11-05 13:30] LABS: Source, Urine Catheter
[2018-11-05 14:31] LABS: Bilirubin, Urine Neg (Neg); Blood, Urine Neg (Neg); Glucose Qualitative, Urine Neg (Neg); Ketones, Urine Neg (Neg); Leukocyte Esterase, Urine Neg (Neg); Nitrite, Urine Neg (Neg); Protein, Urine Neg (Neg); Specific Gravity, Urine 1.015 (1.003-1.022); Urobilinogen, Urine NORM (Normal)
[2018-11-05 14:38] LABS: Appearance, Urine Clear (Clear); Color, Urine Yellow (P-Yellow)
== END ==
LOC: LAB 13:28 → LAB SHORT 13:28
PROVIDERS: Nurse Practitioner Women's Health
DX: R39.12 Poor urinary stream (principal)
CPT/HCPCS: 81003

== ENCOUNTER 2018-11-16 00:31 | Day surgery (SDC) | payer OTHER | END 2018-11-16 22:55 | disposition home or self-care (01) | LOC: WOUND 00:31 | DX: L97.812 Non-pressure chronic ulcer of other part of right lower leg with fat layer exposed (principal); I87.2 Venous insufficiency (chronic) (peripheral); I11.0 Hypertensive heart disease with heart failure; I50.22 Chronic systolic (congestive) heart failure; I25.10 Atherosclerotic heart disease of native coronary artery without angina pectoris; I73.9 Peripheral vascular disease, unspecified ==

== ENCOUNTER 2018-12-01 11:30 | Day surgery (SDC) | payer OTHER | END 2018-12-01 22:55 | disposition home or self-care (01) | LOC: WOUND 11:30 | DX: L97.811 Non-pressure chronic ulcer of other part of right lower leg limited to breakdown of skin (principal); S81.802A Unspecified open wound, left lower leg, initial encounter; I87.2 Venous insufficiency (chronic) (peripheral); L97.822 Non-pressure chronic ulcer of other part of left lower leg with fat layer exposed; I11.0 Hypertensive heart disease with heart failure; I50.22 Chronic systolic (congestive) heart failure; I25.10 Atherosclerotic heart disease of native coronary artery without angina pectoris ==

== ENCOUNTER 2018-12-07 00:28 | Day surgery (SDC) | payer OTHER | END 2018-12-07 22:51 | disposition home or self-care (01) | LOC: WOUND 00:28 | DX: L97.811 Non-pressure chronic ulcer of other part of right lower leg limited to breakdown of skin (principal); L97.821 Non-pressure chronic ulcer of other part of left lower leg limited to breakdown of skin; I87.2 Venous insufficiency (chronic) (peripheral); I11.0 Hypertensive heart disease with heart failure; I50.22 Chronic systolic (congestive) heart failure; I73.9 Peripheral vascular disease, unspecified; I25.10 Atherosclerotic heart disease of native coronary artery without angina pectoris ==

== ENCOUNTER 2018-12-14 00:29 | Day surgery (SDC) | payer OTHER ==
[2019-01-17] MEDS ORDERED: Mupirocin22 GM TOP (10:08)
[2019-01-17] MEDS ORDERED: DICLOFENAC SOD100 G1 TOP (10:09)
[2019-01-18] MEDS ORDERED: FURO20 PO (16:20)
[2019-01-18] MEDS ORDERED: METO50ER PO (16:20)
[2019-01-18] MEDS ORDERED: LEVFLO500 PO (16:21)
== END 2018-12-14 22:53 | disposition home or self-care (01) ==
LOC: WOUND 00:29
DX: L97.821 Non-pressure chronic ulcer of other part of left lower leg limited to breakdown of skin (principal); L97.812 Non-pressure chronic ulcer of other part of right lower leg with fat layer exposed; S81.802A Unspecified open wound, left lower leg, initial encounter; I87.2 Venous insufficiency (chronic) (peripheral); I11.0 Hypertensive heart disease with heart failure; I50.22 Chronic systolic (congestive) heart failure; I25.10 Atherosclerotic heart disease of native coronary artery without angina pectoris

== ENCOUNTER 2018-12-21 00:12 | Day surgery (SDC) | payer OTHER | END 2018-12-21 22:43 | disposition home or self-care (01) | LOC: WOUND 00:12 | DX: L97.811 Non-pressure chronic ulcer of other part of right lower leg limited to breakdown of skin (principal); L97.821 Non-pressure chronic ulcer of other part of left lower leg limited to breakdown of skin; I87.2 Venous insufficiency (chronic) (peripheral); S81.802D Unspecified open wound, left lower leg, subsequent encounter; I11.0 Hypertensive heart disease with heart failure; I50.22 Chronic systolic (congestive) heart failure; I25.10 Atherosclerotic heart disease of native coronary artery without angina pectoris; I73.9 Peripheral vascular disease, unspecified ==

== ENCOUNTER 2018-12-28 09:34 | Day surgery (SDC) | payer OTHER | END 2018-12-28 22:41 | disposition home or self-care (01) | LOC: WOUND 09:34 | DX: L97.811 Non-pressure chronic ulcer of other part of right lower leg limited to breakdown of skin (principal); L97.821 Non-pressure chronic ulcer of other part of left lower leg limited to breakdown of skin; I87.2 Venous insufficiency (chronic) (peripheral); S81.802D Unspecified open wound, left lower leg, subsequent encounter; I11.0 Hypertensive heart disease with heart failure; I50.22 Chronic systolic (congestive) heart failure ==

== ENCOUNTER 2019-01-11 00:07 | Day surgery (SDC) | payer OTHER | END 2019-01-11 22:43 | disposition home or self-care (01) | LOC: WOUND 00:07 | DX: L97.912 Non-pressure chronic ulcer of unspecified part of right lower leg with fat layer exposed (principal); S81.802D Unspecified open wound, left lower leg, subsequent encounter; I87.2 Venous insufficiency (chronic) (peripheral); I73.9 Peripheral vascular disease, unspecified; I11.0 Hypertensive heart disease with heart failure; I50.22 Chronic systolic (congestive) heart failure; I25.10 Atherosclerotic heart disease of native coronary artery without angina pectoris; J45.909 Unspecified asthma, uncomplicated; I25.2 Old myocardial infarction; M19.90 Unspecified osteoarthritis, unspecified site; G62.9 Polyneuropathy, unspecified; M06.9 Rheumatoid arthritis, unspecified; Z88.0 Allergy status to penicillin; Z88.2 Allergy status to sulfonamides; Z88.1 Allergy status to other antibiotic agents; Z88.8 Allergy status to other drugs, medicaments and biological substances; Z79.899 Other long term (current) drug therapy; Z88.5 Allergy status to narcotic agent; W19.XXXD Unspecified fall, subsequent encounter | CPT/HCPCS: Q4196 ==

== ENCOUNTER 2019-02-01 09:35 | Day surgery (SDC) | payer OTHER ==
[~2019-02-01 09:35] MED LIST changes: +DICLOFENAC SOD100 G1 TOP; +FURO20 PO; +LEVFLO500 PO; +Mupirocin22 GM TOP
== END 2019-02-01 22:45 | disposition home or self-care (01) ==
LOC: WOUND 09:35
DX: S81.802D Unspecified open wound, left lower leg, subsequent encounter (principal); I87.2 Venous insufficiency (chronic) (peripheral); I11.0 Hypertensive heart disease with heart failure; I50.22 Chronic systolic (congestive) heart failure; I25.10 Atherosclerotic heart disease of native coronary artery without angina pectoris; Z79.01 Long term (current) use of anticoagulants; Z79.899 Other long term (current) drug therapy